=== PATIENT | female | born 1960 | race Two or more races ===

== ENCOUNTER 2018-07-17 10:04 | Emergency (ER) | payer BC ==
--- NOTE | 2018-07-17 10:51 | EDM.PDOC ---
ED HPI GENERAL MEDICAL PROBLEM - General Chief Complaint: Lower Extremity Injury/Pain Stated Complaint: SENT [facility] COMPLAINT Time Seen by Provider: 07/17/18 10:30 Source of Information: Reports: Patient History Limitations: Reports: No Limitations - History of Present Illness INITIAL COMMENTS - FREE TEXT/NARRATIVE: 57-year-old female presents for evaluation treatment of "wobbliness" and Weakness. She reports 3 weeks ago she noticed some wobbliness and weakness in her legs. She states that she almost fell several times, she did not fall. She states that she feels she has no strength in her thighs. Over the last few weeks her symptoms seem to wax and wane. Reports yesterday was worse than today. She states that she did travel back from [place] yesterday and this could be why it was worse yesterday than today. She feels like she has decreased strength in her thighs and her upper arms. She works at [employer] and is normally able to lift a 45 lb box without any problem but she cannot do this any longer. She feels like her legs are constantly going to give out. She reports some numbness and tingling across her low back that shoots into her thighs. She denies any numbness or tingling into her hands or feet. No recent fevers, chills, nausea, vomiting or diarrhea. No skin rashes or joint swelling. She states she's never had anything like this before. She has not been seen for this thus far. She reports that she has had low back pain all of her life and takes 8 or 9 Motrin a day for low back pain and neck pain. Duration: Week(s): (3) Location: Reports: Upper Extremity, Left, Upper Extremity, Right, Lower Extremity, Left, Lower Extremity, Right Treatments CLAIMS ADJUDICATOR: Reports: Other (see below) Other Treatments CLAIMS ADJUDICATOR: chiropractic, massage - Related Data Allergies Allergy/AdvReac Type Severity Reaction Status Date / Time No Known Allergies Allergy Verified 07/17/18 10:27 Home Meds: Home Meds . [No Known Home Meds] 07/17/18 [History] Past Medical History - Past Health History Medical/Surgical History: Denies Medical/Surgical History Musculoskeletal History: Reports: Osteoarthritis Social & Family History - Family History Family Medical History: Noncontributory - Tobacco Use Smoking Status *Q: Current Every Day Smoker Years of Tobacco use: 35 Packs/Tins Daily: 0.5 Used Tobacco, but Quit: No Second Hand Smoke Exposure: No - Caffeine Use Caffeine Use: Reports: Coffee, Energy Drinks, Soda - Alcohol Use Days Per Week of Alcohol Use: 4 Number of Drinks Per Day: 2 Total Drinks Per Week: 8 - Recreational Drug Use Recreational Drug Use: No Review of Systems - Review of Systems Review Of Systems: See Below Constitutional: Denies: Chills, Fever GI/Abdominal: Denies: Abdominal Pain, Diarrhea, Nausea, Vomiting Musculoskeletal: Reports: Neck Pain (chronic), Back Pain (low back chronic) Skin: Denies: Rash Neurological: Reports: Numbness (low back in to bilateral thighs), Tingling ( low back into bilteral thighs), Difficulty Walking, Weakness ED EXAM, GENERAL - Physical Exam Exam: See Below Exam Limited By: No Limitations General Appearance: Alert, WD/WN, No Apparent Distress Ears: Normal External Exam, Normal Canal, Hearing Grossly Normal, Normal TMs Nose: Normal Inspection Throat/Mouth: Normal Inspection, Normal Lips, Normal Oropharynx, Normal Voice, No Airway Compromise Respiratory/Chest: No Respiratory Distress, Lungs Clear, Normal Breath Sounds Cardiovascular: Normal Peripheral Pulses, Regular Rate, Rhythm, No Murmur Peripheral Pulses: 2+: Radial (L), Radial (R), Posterior Tibial (L), Posterior Tibial (R), Dorsalis Pedis (L), Dorsalis Pedis (R) GI/Abdominal: Normal Bowel Sounds, Soft, Non-Tender Extremities: Normal Inspection, Other (strength testin.5/5 bilateral upperextremities, wrist strength 5/5 bilaterally, lower legs strength testing 4.5/5 bilterally) Neurological: Alert, Oriented, Normal Cognition, Normal Reflexes, Other (no ankle clonus; 3+ reflexes patallar, achilles, bicepts and radial bilterally) Psychiatric: Normal Affect, Normal Mood Skin Exam: Warm, Dry, Normal Color, No Rash Course - Vital Signs Last Recorded V/S: Last Vital Signs Temp 97.8 F 07/17/18 10:15 Pulse 65 07/17/18 10:15 Resp 12 07/17/18 10:15 BP 156/69 H 07/17/18 10:15 Pulse Ox 96 05/09/19 10:15 - Orders/Labs/Meds Labs: Laboratory Tests 07/17/18 07/17/18 Range/Units 11:03 11:03 WBC 7.38 (3.98-10.04) K/mm3 RBC 4.57 (3.98-5.22) M/mm3 Hgb 13.8 (11.2-15.7) gm/L Hct 41.6 (34.1-44.9) % MCV 91.0 (79.4-94.8) fl MCH 30.2 (25.6-32.2) pg MCHC 33.2 (32.2-35.5) g/dl RDW Std Deviation 49.3 H (36.4-46.3) fL Plt Count 270 (182-369) K/mm3 MPV 10.3 (9.4-12.3) fl Neut % (Auto) 62.9 (34.0-71.1) % Lymph % (Auto) 22.6 (19.3-51.7) % Foard % (Auto) 6.8 (4.7-12.5) % Eos % (Auto) 6.9 H (0.7-5.8) Baso % (Auto) 0.7 (0.1-1.2) % Neut # (Auto) 4.64 (1.56-6.13) K/mm3 Lymph # (Auto) 1.67 (1.18-3.74) K/mm3 Foard # (Auto) 0.50 H (0.24-0.36) K/mm3 Eos # (Auto) 0.51 H (0.04-0.36) K/mm3 Baso # (Auto) 0.05 (0.01-0.08) K/mm3 Sodium 138 (136-145) mEq/L Potassium 4.0 (3.5-5.1) mEq/L Chloride 104 (98-107) mEq/L Carbon Dioxide 25 (21-32) mEq/L Anion Gap 13.0 (5-15) BUN 13 (7-18) mg/dL Creatinine 0.6 (0.55-1.02) mg/dL Est Cr Clr Drug Dosing 81.82 mL/min Estimated GFR (MDRD) > 60 (>60) mL/min BUN/Creatinine Ratio 21.7 H (14-18) Glucose 106 (74-106) mg/dL Calcium 9.3 (8.5-10.1) mg/dL Magnesium 1.8 (1.8-2.4) mg/dl Total Bilirubin 0.3 (0.2-1.0) mg/dL AST 18 (15-37) U/L ALT 22 (14-59) U/L Alkaline Phosphatase 75 (46-116) U/L Creatine Kinase 104 (26-192) U/L C-Reactive Protein 0.2 (<1.0) mg/dL Total Protein 7.7 (6.4-8.2) g/dl Albumin 4.0 (3.4-5.0) g/dl Globulin 3.7 gm/dL Albumin/Globulin Ratio 1.1 (1-2) TSH 3rd Generation 1.380 (0.358-3.74) uIU/mL - Re-Assessments/Exams Free Text/Narrative Re-Assessment/Exam: 07/17/18 11:51 Reviewed the labs with the patient. Encouraged follow-up with family medicine to further evaluate weakness. She expresses understanding. Discharge instructions as documented. Departure - Departure Time of Disposition: 12:00 Disposition: Home, Self-Care 01 Condition: Good Clinical Impression: Weakness - Discharge Information Instructions: Weakness, [id number] Referrals: PCP,None [Primary Care Provider] - Abner Londono MD [Physician] - Forms: ED Department Discharge Additional Instructions: Follow-up with internal medicine for further evaluation of your symptoms. If your symptoms do not improve you may require additional testing to determine the cause of your weakness. Recommend Dr. Sands or Dr. Gonzalez at [facility]. Call [phone] to schedule with one of these providers. May sure you are getting plenty of rest and drinking plenty of fluids. Please return to the ER should your symptoms change or worsen.
== END 2018-07-17 12:35 | disposition home or self-care (01) ==
LOC: JD.ED 10:04
DX: R53.1 Weakness (principal); F17.210 Nicotine dependence, cigarettes, uncomplicated
CPT/HCPCS: 36415; 80053; 82550; 83735; 84443; 85025; 86140; 99282; 99283